=== PATIENT | male | born 1965 | race Caucasian/White ===

== ENCOUNTER 2016-10-24 22:25 | Inpatient (IN) | payer OTHER ==
[~2016-10-24] VITALS: Ht 177.8 cm; Wt 62.5 kg
[2016-10-24 22:30] VITALS: Ht 177.8 cm; Wt 62.5 kg
[2016-10-25] VITALS (16 sets, daily range): BP systolic 121–165; BP diastolic 79–108; PULSE 73–93; RESP 11–25; TEMP 97.3
--- NOTE | 2016-10-25 00:33 | ERD ---
ER Documentation Chief Complaint Date/Time DATE: 10/25/16 TIME: 00:30 Chief Complaint bib ra881 for chills,weakness,abd pain n/v/d, sore throat,cough,runny nose HPI This 50-year-old male patient BIBA for chills n/v/ fatighue, ABD pain and diarrhea . pt is a DM on metformin denies that medication causes GI distress. Patient reports difficulty tolerating fluids and solid food. pt is sleeping during most of exam, ROS All systems reviewed and are negative except as per history of present illness. Medications Home Meds Reported Medications Lisinopril* (Lisinopril*) Unknown Strength Tablet, 0 PO DAILY, #30 TAB 10/25/16 Metformin* (Glucophage*) 500 Mg Tab, 500 MG PO WITH BREAKFAST DINNE, #30 TAB 10/25/16 Allergies Allergies: Coded Allergies: ondansetron (Unverified Adverse Reaction, Unknown, VOMITTING, 10/25/16) Uncoded Allergies: ZOFRAN (Allergy, Unknown, VOMITING, 01/09/16) PMhx/Soc Hx Cardiac Disorders: Yes (htn) Hx Miscellaneous Medical Probl: Yes (pancreatitis, dm) Hx Alcohol Use: Yes Hx Substance Use: Yes (marijuana) Hx Tobacco Use: No Smoking Status: Never smoker Physical Exam Vitals Vital Signs Date Time Temp Pulse Resp B/P Pulse Ox O2 Delivery O2 Flow Rate FiO2 10/25/16 06:00 99.5 81 18 171/81 100 Room Air 10/25/16 05:41 99.5 89 18 182/91 100 Room Air 10/24/16 22:30 99.5 104 18 181/97 100 Stable, triage notes reviewed, blood pressure 181/97 Physical Exam Const: Cachectic, falling asleep during exam, waking moaning in pain holding his abdomen, obvious discomfort no acute distress Head: Eyes: ENT: Normal External Ears, Nose and Mouth. Neck: Resp: Clear to auscultation bilaterally Cardio: Regular rate and rhythm, no murmurs Abd: Soft, generalized tenderness, no distention, no Salas's point tenderness. Skin: No petechiae or rashes Back: Ext: Neur: Awake and alert Psych: Normal Mood and Affect Result Diagram: 10/25/16 0255 10/25/16 1545 Results 24 hrs Laboratory Tests Test 10/25/16 02:55 10/25/16 04:16 10/25/16 05:31 10/25/16 06:36 White Blood Count 6.410^3/ul Red Blood Count 4.4610^6/ul Hemoglobin 13.5g/dl Hematocrit 39.7% Mean Corpuscular Volume 89.0fl Mean Corpuscular Hemoglobin 30.3pg Mean Corpuscular Hemoglobin Concent 34.0g/dl Red Cell Distribution Width 11.8% Platelet Count 07801^3/UL Mean Platelet Volume 10.2fl Neutrophils % 91.7% Lymphocytes % 6.1% Monocytes % 1.7% Eosinophils % 0.0% Basophils % 0.2% Nucleated Red Blood Cells % 0.0/100WBC Neutrophils # (Manual) 610^3/ul Lymphocytes # 0.410^3/ul Monocytes # 0.110^3/ul Eosinophils # 0.010^3/ul Basophils # 0.010^3/ul Nucleated Red Blood Cells # 0.010^3/ul Sodium Level 138mmol/L Potassium Level 4.0mmol/L Chloride Level 96mmol/L Carbon Dioxide Level 14mmol/L Anion Gap 32 Blood Urea Nitrogen 14mg/dl Creatinine 1.28mg/dl Glucose Level 255mg/dl Calcium Level 10.3mg/dl Phosphorus Level 3.9mg/dl Magnesium Level 1.7mg/dl Total Bilirubin 0.9mg/dl Direct Bilirubin 0.00mg/dl Indirect Bilirubin 0.9mg/dl Aspartate Amino Transf (AST/SGOT) 20IU/L Alanine Aminotransferase (ALT/SGPT) 31IU/L Alkaline Phosphatase 109IU/L Total Protein 8.9g/dl Albumin 5.3g/dl Globulin 3.60g/dl Albumin/Globulin Ratio 1.47 Lipase < 10U/L Blood Gas Specimen Source Blood venous Arterial Blood Date Drawn 10/25/2016 4:40:46 AM Arterial Blood Gas Puncture Site VENOUS LINE Jhonatan Test N/A Venous Blood pH 7.448 Venous Blood pCO2 (Temp Corrected) 21.0mmHG Venous Blood pO2 (Temp Corrected) 53.2mmHG Venous Blood HCO3 14.2mmol/L Venous Blood Oxygen Saturation 89.4mmHG Venous Blood Base Excess -7.5mmol/L Venous Blood Total Hemoglobin 13.7g/dl Venous Blood Oxyhemoglobin 88.6% Venous Blood Methemoglobin 0.2% Carboxyhemoglobin 0.7% Blood Gas Temperature 37.0C Blood Gas Modality ROOM AIR FiO2 21.0% Blood Gas Notified Whom MM Blood Gas Notified Time 10/25/2016 4:47:21 AM Bedside Glucose 322mg/dL 247mg/dL Current Medications Medications (Trade) Dose Ordered Sig/Georgie Route PRN Reason Start Time Stop Time Status Last Admin Dose Admin Acetaminophen (Tylenol Tab) 650 mg ONCE STAT PO 10/25/16 00:34 10/25/16 00:36 DC 10/25/16 00:57 Ondansetron HCl (Zofran Odt) 4 mg ONCE STAT ODT 10/25/16 00:34 10/25/16 00:36 DC 10/25/16 00:57 Ondansetron HCl (Zofran Inj) 4 mg ONCE ONCE IV 10/25/16 02:12 10/25/16 02:13 DC 10/25/16 02:56 Ketorolac Tromethamine 15 mg 15 mg ONCE ONCE IV 10/25/16 02:12 10/25/16 02:13 DC 10/25/16 02:56 Sodium Chloride 1,000 ml @ 1,000 mls/hr Q1H STAT IV 10/25/16 04:16 10/25/16 05:15 DC 10/25/16 05:00 Lactated Ringer's 1,000 ml @ 1,000 mls/hr Q1H STAT IV 10/25/16 04:16 10/25/16 05:15 DC 10/25/16 05:00 Insulin Human Regular 100 unit/ Sodium Chloride 100 ml @ 0 mls/hr TITRATE STAT IV 10/25/16 04:16 10/25/16 04:19 DC 10/25/16 05:38 Potassium Chloride/Dextrose/ Sod Cl (D5-1/2ns + KCl 20 Meq) 1,000 ml @ 250 mls/hr Q4H ONCE IV 10/25/16 04:55 10/25/16 20:41 DC Hydromorphone HCl (Dilaudid) 0.5 mg ONCE STAT IV 10/25/16 04:55 10/25/16 04:57 DC 10/25/16 05:10 Ondansetron HCl 4 mg 4 mg ONCE STAT IV 10/25/16 04:55 10/25/16 04:57 DC Sodium Chloride 1,000 ml @ 150 mls/hr Q6H40M IV 10/25/16 06:37 10/25/16 20:41 DC 10/25/16 06:37 Dextrose/Sodium Chloride (D5-1/2ns) 1,000 ml @ 150 mls/hr Q6H40M IV 10/25/16 06:37 10/25/16 19:03 DC 10/25/16 08:58 Interpretation text CBC shows no evidence of hemorrhage or infection Chemistry shows no evidence of significant electrolyte abnormalities or renal insufficiency Liver function tests shows no evidence of acute biliary or hepatic dysfunction Procedures/MDM This 50-year-old male patient brought into emergency department by ambulance for chills, nausea, vomiting, fatigue, diarrhea, abdominal pain. Patient is a diabetic on metformin is cachectic and sleeping intermittently . Patient denies any IV drug use, denies any pre-existing condition. Tums have been present for the last 2 days. I have low suspicion for appendicitis, bowel obstruction, or cholecystitis. Patient emergency room care includes Zofran and Motrin which he vomited. Treatment plan reassessed patient will receive IV normal saline, IV Zofran, IV Toradol, routine laboratory testing CBC, CMP, lipase, to rule out any acute infection or electrolyte imbalance, any biliary dysfunction or diabetic ketoacidosis. Patient is dehydrated with poor veins not tolerating ordered interventions. Laboratory called to obtain serology, medication given intramuscularly. Patient is unable to provide urine at this time regardless of going to the bathroom numerous times. I have ordered a urinalysis and a urine drug screen. In my opinion patient is on intravenous drugs or withdrawing from intravenous drugs. Patient is nonconfrontational reports feeling better after examination. Plan to discharge patient with viral gastroenteritis with Zofran 4 mg 1 tab p.o. every 8 hours as needed. Increase fluids, increase rest. Once laboratory testing becomes available and normal. Report is given to Yamileth Lennon, plan discussed. Patient will be discharged as planned unless abnormal laboratory values suggest other emergent condition requiring further evaluation or hospitalization ANSHUQUINTEN BOLTON Oct 25, 2016 00:27
[2016-10-25] MEDS ORDERED: ONDANSETRON (ODT) 4 MG TAB ODT STA (00:34)
[2016-10-25] MEDS ORDERED: ACETAMINOPHEN 325 MG TAB PO STA (00:34)
[2016-10-25] MEDS ORDERED: ONDANSETRON 4 MG INJ IV ONE (02:12)
[2016-10-25] MEDS ORDERED: KETOROLAC 15 MG INJ IV ONE (02:12)
[2016-10-25 04:01] LABS: ALANINE AMINOTRANSFERASE 31 IU/L (13-69); ALBUMIN 5.3 g/dl (3.3-4.9); ALBUMIN/GLOBULIN RATIO 1.47; ALKALINE PHOSPHATASE 109 IU/L (42-121); ANION GAP 32 (8-16); ASPARTATE AMINO TRANSFERASE 20 IU/L (15-46); BILIRUBIN,INDIRECT 0.9 mg/dl (0-1.1); BILIRUBIN,TOTAL 0.9 mg/dl (0.2-1.3); BLOOD UREA NITROGEN 14 mg/dl (7-20); CALCIUM 10.3 mg/dl (8.4-10.2); CARBON DIOXIDE 14 mmol/L (21-31); CHLORIDE 96 mmol/L (97-110); CREATININE 1.28 mg/dl (0.61-1.24); GLUCOSE 255 mg/dl (70-220); SODIUM 138 mmol/L (135-144); TOTAL PROTEIN 8.9 g/dl (6.1-8.1)
[2016-10-25] MEDS ORDERED: SOD CHLORIDE 0.9% 1,000 ML IV STA (04:16)
[2016-10-25] MEDS ORDERED: LACTATED RINGER'S 1,000 ML IV STA (04:16)
[2016-10-25] MEDS ORDERED: INSULIN HUMAN REGULAR 100 UNIT in SOD CHLORIDE 0.9% 99 ML IV STA (04:16)
[2016-10-25 04:19] LABS: ABNORMAL IP MESSAGE 1; BASOPHILS % 0.2 % (0.0-2.0); HEMATOCRIT 39.7 % (42.0-52.0); HEMOGLOBIN 13.5 g/dl (14.0-18.0); LYMPHOCYTES # 0.4 10^3/ul (0.8-2.9); LYMPHOCYTES % 6.1 % (15.0-51.0); MEAN CORPUSCULAR HEMOGLOBIN 30.3 pg (29.0-33.0); MEAN PLATELET VOLUME 10.2 fl (7.4-10.4); MONOCYTE # 0.1 10^3/ul (0.3-0.9); MONOCYTES % 1.7 % (0.0-11.0); NEUTROPHILS % 91.7 % (39.0-77.0); PLATELET COUNT 253 10^3/UL (140-415); POSITIVE DIFF @See below; RED BLOOD COUNT 4.46 10^6/ul (4.70-6.10); RED CELL DISTRIBUTION WIDTH 11.8 % (11.5-14.5); WHITE BLOOD COUNT 6.4 10^3/ul (4.8-10.8)
[2016-10-25 04:49] LABS: MODE ROOM AIR; MetHgb Venous 0.2 %; Sample Type Blood venous; Venous COHb 0.7 %; Venous Fraction OxyHgb 88.6 %; Venous Total Hemglobin 13.7 g/dl
[2016-10-25] MEDS ORDERED: HYDROmorphONE 1 MG/ML SYG IV STA (04:55)
[2016-10-25] MEDS ORDERED: ONDANSETRON 4 MG INJ IV STA (04:55)
[2016-10-25] MEDS ORDERED: D5W-0.45 NACL + KCL 20 MEQ 1,000 ML IV ONE (04:55)
[2016-10-25] MEDS ORDERED: METF500T4 PO (05:16)
[2016-10-25] MEDS ORDERED: LISI10TA2 PO (05:16)
--- NOTE | 2016-10-25 05:44 | QN ---
Documentation Comment I have seen and evaluated the patient along with the PA and/or [employer] provider. I agree with the evaluation and plan of care. Please see their documentation for full ER course and evaluation. In short: This is a 50-year-old male with a history of diabetes who presents with nausea vomiting and diarrhea. The patient has poor p.o. intake. The patient was evaluated and treated by the PA and [employer] team and concern for DKA arose. On my evaluation the patient is still describing mild abdominal cramping with nausea. On exam: General: Thin, dehydrated Head: Normocephalic, atraumatic. Eyes: Pupils equally reactive, EOM intact ENT: Very dry mucous membranes Neck: Supple, no lymphadenopathy Respiratory: Lungs clear bilaterally, no distress Cardiovascular: RRR, no murmurs, rubs, or gallops Abdominal: Soft, mild diffuse tenderness without localizing symptoms, no peritonitis : Deferred MSK: No edema, no unilateral swelling, 5/5 strength Neurologic: Alert and oriented, moving all extremities, normal speech, no focal weakness, no cerebellar signs Skin: No rash Psych: Normal mood Assessment and plan: The patient has laboratory values that are concerning for diabetic ketoacidosis. He has not been able to produce urine. The patient has an anion gap of 28. The patient's pH on venous blood gas is normal suggesting possible early disease process versus compensated process. I do not suspect acute intra- abdominal process and do not feel the patient warrants CT imaging of the abdomen and pelvis at this time. The patient has been a diabetic ketoacidosis before and states this feels similar. The patient was a very difficult IV access, my nursing team was eventually able to obtain IV access and the patient was written for a liter of saline, liter lactated Ringer's and dextrose infusion solution as needed. He was initiated on an insulin drip. The patient will need placement in the intensive care unit, magnesium and phosphorus pending. Replete electrolytes as needed. DKA protocol initiated in the emergency room. Critical Care Note: Total time: 48 minutes Indication/Organ System Threat: Diabetic ketoacidosis I spent the above amount of critical care time with the patient, not including billable procedures. This included chart review, consultations, repeat bedside evaluations, and titration of appropriate medications to prevent cardiopulmonary or respiratory collapse. Accepting care team and consultations: I discussed the current laboratory data, diagnostic imaging and emergency care provided. Admitting team: Dr. Espinoza Admitting team indication: Insurance directed LEN WHITMAN MD Oct 25, 2016 05:44
[2016-10-25] MEDS: SOD CHLORIDE 0.9% 1,000 ML IV SCH ×3 (06:37→19:55)
[2016-10-25 06:59] LABS: MAGNESIUM 1.7 mg/dl (1.7-2.5); PHOSPHORUS 3.9 mg/dl (2.5-4.9)
[2016-10-25] MEDS ORDERED: DEXTROSE 50% 50 ML SYRINGE IV PRN ×3 (07:00→21:30)
[2016-10-25] MEDS ORDERED: INSULIN HUMAN REGULAR IV SCH ×3 (07:00)
[2016-10-25] MEDS ORDERED: SOD CHLORIDE IV SCH ×3 (07:00)
[2016-10-25] MEDS: ACCU-CHEK XX SCH ×14 (07:00→19:58)
[2016-10-25] MEDS ORDERED: METOCLOPRAMIDE 10 MG INJ IV PRN (07:00)
[2016-10-25] MEDS ORDERED: [UNRECOGNIZED DRUG - OTHER] IV SCH ×3 (07:00)
[2016-10-25] MEDS ORDERED: LORAZEPAM 2 MG INJ IV PRN (07:00)
[2016-10-25] MEDS ORDERED: Regular insulin 100 Units/100 ml NS IV SCH ×2 (07:30)
[2016-10-25] MEDS ORDERED: ACCU-CHEK XX SCH (07:30)
[2016-10-25] MEDS ORDERED: DIPHENHYDRAMINE 25 MG CAP PO ONE (07:30)
--- NOTE | 2016-10-25 08:56 | HP ---
DATE OF ADMISSION: 10/24/2016 CHIEF COMPLAINT: Flulike symptoms for about 2 days. HISTORY OF PRESENT ILLNESS: Mr. Campos is a 50-year-old male with a past medical history of hypertension, diabetes, who was brought in by ambulance because of chills, nausea, vomiting, abdominal pain for the last 2 days. Patient has also had some diarrhea. Patient had attributed his symptoms to medication effect , but preliminary emergency room evaluation shows patient is in acute DKA. He is being admitted to the intensive care unit as per protocol for DKA management. PAST MEDICAL HISTORY: 1. Hypertension. 2. Diabetes mellitus. 3. History of pancreatitis. PAST SURGICAL HISTORY: None. ALLERGIES: PATIENT IS ALLERGIC TO: ZOFRAN. ONDANSETRON. SOCIAL HISTORY: Marijuana and alcohol user, but denies tobacco use. REVIEW OF SYSTEMS: Twelve point review of systems was noncontributory except what was found in HPI. MEDICATIONS: These were reviewed and reconciled. Please refer the patient's chart for details. Patient takes: 1. Metformin. 2. Lisinopril of unknown dose. PHYSICAL EXAMINATION: VITAL SIGNS: Temperature 99.5, pulse 81, respirations 18, blood pressure 171/81, saturation 100 percent on room air. GENERAL APPEARANCE: Patient is a chronically ill looking, lethargic, but alert and in no distress. HEENT: Head normocephalic. Pupils are equal and reactive. Mucous membranes were dry. Posterior pharynx also looks quite dry, but not inflamed. LUNGS: Clear to auscultation. CARDIAC: S1, S2. No murmurs. ABDOMEN: Patient complains of soreness but it is not really tender with marked bowel sounds, nondistended. EXTREMITIES: Lower extremities negative for edema. SKIN: Devoid of rashes. No jaundice. DATA: The patient has an anion gap of 32, with CO2 level of 14, creatinine of 1.28, point of care glucose is 322, calcium 10.3. His lipid profile is grossly normal, but he does have hyperproteinemia and hyperalbuminemia. His lipase level is normal. His CBC does show predominance of the neutrophils but no white count and his hemoglobin is low with normocytic indices. IMPRESSION: A 50-year-old male who presents to us with flulike symptoms manifested by: 1. Metabolic acidosis secondary to diabetic ketoacidosis. 2. Poorly controlled diabetes mellitus. 3. Hypertension with suboptimal control. 4. Alcohol and marijuana user. 5. Acute renal insufficiency secondary to dehydration. PLAN: Admit to intensive care and provide insulin via DKA protocol. We will hold his DASH inhibitor for now and resume when his renal function improves. We will use p.r.n. antihypertensives, keep patient n.p.o., and essentially address his dehydration, and treat with insulin drip. This plan of care has been discussed with the patient. Patient is going to require close critical care monitoring and management. Dictated By: Oscar Espinoza MD /fabricio/jose /Document#: [id number] ANDRE
[2016-10-25] MEDS: DEXTROSE 5%-0.45% NACL 1,000 ML IV SCH ×2 (08:58→13:17)
[2016-10-25 08:59] LABS: CALCIUM 9.3 mg/dl (8.4-10.2); CREATININE 1.27 mg/dl (0.61-1.24); POTASSIUM 3.6 mmol/L (3.5-5.1)
[2016-10-25] MEDS ORDERED: FAMOTIDINE 20 MG INJ IV SCH (09:00)
[2016-10-25] MEDS: DOCUSATE SODIUM 100 MG CAP PO SCH ×2 (09:22→19:58)
[2016-10-25] MEDS: DEXTROSE 50% 50 ML SYRINGE IV PRN ×2 (10:52→17:11)
[2016-10-25] MEDS: HYDROmorphONE 1 MG/ML SYG IV PRN ×3 (11:24→19:12)
[2016-10-25] MEDS ORDERED: DEXTROSE 5% 1,000 ML IV SCH (13:00)
[2016-10-25] MEDS: DIPHENHYDRAMINE 25 MG CAP PO PRN ×2 (14:37→21:13)
[2016-10-25 16:08] LABS: CALCIUM 9.2 mg/dl (8.4-10.2); CREATININE 1.2 mg/dl (0.61-1.24); POTASSIUM 3.5 mmol/L (3.5-5.1)
[2016-10-25] MEDS ORDERED: INSULIN GLARGINE [LANtus] 3 ML PEN SC ONE (17:00)
--- NOTE | 2016-10-25 19:00 | PN ---
Date/Time of Note Date/Time of Note DATE: 10/25/16 TIME: 18:59 Assessment/Plan VTE Prophylaxis VTE Prophylaxis Intervention: SCD's Lines/Catheters IV Catheter Type (from Nrs): Peripheral IV Urinary Cath still in place: No Assessment/Plan Assessment/Plan 50 yo M with DM admitted for DKA PLAN transition from insulin drip to SubQ a1c DM CDE consult for weight loss, check CXR and PSA to r/o occult malignancy if PO tolerance remains an issue, consider NM gastric emptying study Critical care time: 30 minutes Subjective 24 Hr Interval Summary Free Text/Dictation Pt states he has been under a lot of stress from school lately and has lost 30 pounds from this and poor appetite Exam/Review of Systems Vital Signs Vitals Vital Signs Date Time Temp Pulse Resp B/P Pulse Ox O2 Delivery O2 Flow Rate FiO2 10/25/16 18:00 77 17 157/107 95 Room Air 10/25/16 16:30 97.9 Exam nad MMM no mrg lungs clear abd soft no rashes Results Result Diagram: 10/25/16 0255 10/25/16 1545 Results 24 hrs Laboratory Tests Test 10/25/16 02:55 10/25/16 04:16 10/25/16 05:31 10/25/16 06:36 White Blood Count 6.4 Red Blood Count 4.46 L Hemoglobin 13.5 L Hematocrit 39.7 L Mean Corpuscular Volume 89.0 Mean Corpuscular Hemoglobin 30.3 Mean Corpuscular Hemoglobin Concent 34.0 Red Cell Distribution Width 11.8 Platelet Count 253 Mean Platelet Volume 10.2 Neutrophils % 91.7 H Lymphocytes % 6.1 L Monocytes % 1.7 Eosinophils % 0.0 Basophils % 0.2 Nucleated Red Blood Cells % 0.0 Neutrophils # (Manual) 6 Lymphocytes # 0.4 L Monocytes # 0.1 L Eosinophils # 0.0 Basophils # 0.0 Nucleated Red Blood Cells # 0.0 Sodium Level 138 Potassium Level 4.0 Chloride Level 96 L Carbon Dioxide Level 14 L Anion Gap 32 H Blood Urea Nitrogen 14 Creatinine 1.28 H Glucose Level 255 H Calcium Level 10.3 H Phosphorus Level 3.9 Magnesium Level 1.7 Total Bilirubin 0.9 Direct Bilirubin 0.00 Indirect Bilirubin 0.9 Aspartate Amino Transf (AST/SGOT) 20 Alanine Aminotransferase (ALT/SGPT) 31 Alkaline Phosphatase 109 Total Protein 8.9 H Albumin 5.3 H Globulin 3.60 H Albumin/Globulin Ratio 1.47 Lipase < 10 L Blood Gas Specimen Source Blood venous Arterial Blood Date Drawn 10/25/2016 4:40:46 AM Arterial Blood Gas Puncture Site VENOUS LINE Jhonatan Test N/A Venous Blood pH 7.448 H Venous Blood pCO2 (Temp Corrected) 21.0 L Venous Blood pO2 (Temp Corrected) 53.2 H Venous Blood HCO3 14.2 L Venous Blood Oxygen Saturation 89.4 H Venous Blood Base Excess -7.5 L Venous Blood Total Hemoglobin 13.7 Venous Blood Oxyhemoglobin 88.6 Venous Blood Methemoglobin 0.2 Carboxyhemoglobin 0.7 Blood Gas Temperature 37.0 Blood Gas Modality ROOM AIR FiO2 21.0 Blood Gas Notified Whom MM Blood Gas Notified Time 10/25/2016 4:47:21 AM Bedside Glucose 322 H 247 H Test 10/25/16 07:52 10/25/16 08:15 10/25/16 10:43 10/25/16 11:15 Bedside Glucose 170 68 L 140 Sodium Level 138 Potassium Level 3.6 Chloride Level 100 Carbon Dioxide Level 21 Anion Gap 21 #H Blood Urea Nitrogen 18 Creatinine 1.27 H Glucose Level 140 # Hemoglobin A1c 9.7 H Calcium Level 9.3 Test 10/25/16 12:38 10/25/16 13:39 10/25/16 14:40 10/25/16 15:44 Bedside Glucose 131 128 113 111 Test 10/25/16 15:45 10/25/16 17:09 10/25/16 17:33 10/25/16 18:02 Sodium Level 136 Potassium Level 3.5 Chloride Level 99 Carbon Dioxide Level 24 Anion Gap 17 H Blood Urea Nitrogen 17 Creatinine 1.20 Glucose Level 91 # Calcium Level 9.2 Bedside Glucose 66 L 134 134 Medications Medications Current Medications Dextrose (D50w Syringe) 50 ml Q15M PRN IV For BS 50 or less; Start 10/25/16 at 07:00 Dextrose (D50w Syringe) 25 ml Q15M PRN IV BS between 50-70 Last administered on 10/25/16 17:11; Admin Dose 25 ML; Start 10/25/16 at 07:00 Diagnostic Test (Pha) 1 ea 1 ea Q1H XX Last administered on 10/25/16 18:07; Admin Dose 1 EA; Start 10/25/16 at 07:00 Sodium Chloride 1,000 ml @ 150 mls/hr Q6H40M IV Last administered on 06:37; Admin Dose 150 MLS/HR; Start 10/25/16 at 06:37 Dextrose/Sodium Chloride (D5-1/2ns) 1,000 ml @ 150 mls/hr Q6H40M IV Last administered on 10/25/16 08:58; Admin Dose 150 MLS/HR; Start 10/25/16 at 06:37 Docusate Sodium (Colace) 200 mg BID PO Last administered on 10/25/16 09:22; Admin Dose 200 MG; Start 10/25/16 at 09:00 Metoclopramide HCl (Reglan) 10 mg Q6H PRN IV nausea and vomiting; Start at 07:00 Hydromorphone HCl 1 mg 1 mg Q4H PRN IV PAIN Last administered on 10/25/16 15: 12; Admin Dose 1 MG; Start 10/25/16 at 11:11 Dextrose (D5W) 1,000 ml @ 75 mls/hr [id number] IV Last administered on 10/25/16 13:00; Admin Dose 75 MLS/HR; Start 10/25/16 at 13:00 Diphenhydramine HCl (Benadryl) 25 mg Q6H PRN PO ITCHING Last administered on 14:37; Admin Dose 25 MG; Start 10/25/16 at 14:30 ASIA HUERTA MD Oct 25, 2016 19:00
[2016-10-25] MEDS ORDERED: ZOLPIDEM 5 MG TAB PO PRN (21:00)
[2016-10-25] MEDS: INSULIN ASPART [NOVOLOG] 3 ML PEN SC SCH (21:00)
[2016-10-25] MEDS ORDERED: GLUCOSE GEL 15 GRAM TUBE PO PRN ×2 (21:30)
[2016-10-25] MEDS ORDERED: GLUCAGON 1 MG INJ IM PRN (21:30)
[2016-10-25] MEDS ORDERED: GLUCOSE GEL 15 GRAM TUBE BUCCAL PRN (21:30)
--- NOTE | 2016-10-25 21:50 | RADRPT ---
PROCEDURE: XR Chest. CLINICAL INDICATION: Shortness of breath. TECHNIQUE: Single frontal view. COMPARISON: None. FINDINGS: The lungs are clear. The heart size is normal. There is no pleural effusion. There is no pneumothorax. IMPRESSION: 1. Normal chest radiograph. RPTAT: QQ .Jovan Khoury MD, Date Time Electronically viewed and signed by .Jovan Khoury MD, on 10/25/2016 21:50 .R/
[2016-10-26] VITALS (14 sets, daily range): BP systolic 128–201; BP diastolic 84–146; PULSE 74–101; RESP 11–24
[2016-10-26] MEDS: HYDROmorphONE 1 MG/ML SYG IV PRN ×4 (00:08→12:28)
[2016-10-26] MEDS ORDERED: ACCU-CHEK XX SCH ×2 (02:00)
[2016-10-26] MEDS ORDERED: DIPHENHYDRAMINE 50 MG INJ IV ONE (02:30)
[2016-10-26] MEDS ORDERED: LORAZEPAM 2 MG INJ IV ONE (04:00)
[2016-10-26 06:50] LABS: BASOPHILS % 0.1 % (0.0-2.0); EOSINOPHILS % 0.5 % (0.0-7.0); HEMATOCRIT 33.8 % (42.0-52.0); LYMPHOCYTES # 1.6 10^3/ul (0.8-2.9); LYMPHOCYTES % 20.3 % (15.0-51.0); MEAN CORPUSCULAR HGB CONC 32.5 g/dl (32.0-37.0); MEAN CORPUSCULAR VOLUME 89.2 fl (82.0-101.0); MEAN PLATELET VOLUME 8.9 fl (7.4-10.4); MONOCYTE # 0.8 10^3/ul (0.3-0.9); MONOCYTES % 10.1 % (0.0-11.0); NEUTROPHILS % 68.5 % (39.0-77.0); PLATELET COUNT 224 10^3/UL (140-415); RED BLOOD COUNT 3.79 10^6/ul (4.70-6.10); RED CELL DISTRIBUTION WIDTH 12.2 % (11.5-14.5); WHITE BLOOD COUNT 7.8 10^3/ul (4.8-10.8)
[2016-10-26 06:59] LABS: ADD UMIC NO; UR ASCORBIC ACID NEGATIVE (NEGATIVE); UR BILIRUBIN (Dip) NEGATIVE (NEGATIVE); UR BLOOD (Dip) NEGATIVE (NEGATIVE); UR CLARITY CLEAR (CLEAR); UR COLOR STRAW (YELLOW); UR GLUCOSE (Dip) 1+ mg/dL (NEGATIVE); UR KETONES (Dip) NEGATIVE (NEGATIVE); UR LEUKOCYTE ESTERASE (Dip) NEGATIVE Leu/ul (NEGATIVE); UR NITRITE (Dip) NEGATIVE (NEGATIVE); UR SPECIFIC GRAVITY (Dip) 1.006 (1.003-1.030); UR TOTAL PROTEIN (Dip) NEGATIVE (NEGATIVE); UR UROBILINOGEN (Dip) NEGATIVE (NEGATIVE)
[2016-10-26 07:33] LABS: OPIATES Positive (NEGATIVE)
[2016-10-26] MEDS: INSULIN ASPART [NOVOLOG] 3 ML PEN SC SCH ×2 (07:35→12:39)
[2016-10-26 07:37] LABS: CALCIUM 9.5 mg/dl (8.4-10.2); CHOL/HDL RATIO 1.7 RATIO; CREATININE 1.25 mg/dl (0.61-1.24); MAGNESIUM 1.7 mg/dl (1.7-2.5); POTASSIUM 3.3 mmol/L (3.5-5.1)
[2016-10-26 07:47] LABS: BARBITURATES Negative (NEGATIVE); BENZODIAZEPINES Negative (NEGATIVE); CANNABINOIDS Positive (NEGATIVE); COCAINE Negative (NEGATIVE)
[2016-10-26] MEDS ORDERED: INSULIN GLARGINE [LANtus] 3 ML PEN SC SCH (08:00)
[2016-10-26] MEDS: DOCUSATE SODIUM 100 MG CAP PO SCH (08:18)
[2016-10-26] MEDS ORDERED: POTASSIUM CHLORIDE (SR) 20 MEQ TAB PO STA (09:25)
[2016-10-26] MEDS: DIPHENHYDRAMINE 25 MG CAP PO PRN (09:30)
--- NOTE | 2016-10-26 13:39 | DS ---
Date/Time of Note Date/Time of Note DATE: 10/26/16 TIME: 13:38 Discharge Summary Admission/Discharge Info Admit Date/Time Oct 25, 2016 at 06:54 Discharge Date/Time Discharge Diagnosis diabetic ketoacidosis Patient Condition: Good Procedures CXR 8.: no infiltrate PSA nl a1c 9.7 Hx of Present Illness Mr. Campos is a 50-year-old male with a past medical history of hypertension, diabetes, who was brought in by ambulance because of chills, nausea, vomiting, abdominal pain for the last 2 days. Patient has also had some diarrhea, and also reports some . Patient had attributed his symptoms to medication effect, but preliminary emergency room evaluation shows patient is in acute DKA. He is being admitted to the intensive care unit as per protocol for DKA management. Hospital Course Pt initially on insulin drip, anion gap improved greatly by late afternoon. Drip stopped and patient switched to SubQ insulin. By the next morning, AG had totally closed and BGs consistently <200. Pt seen by DM educator and got DM teaching prior to discharge. For patient's c/o weight loss, PSA and CXR were checked-->both unremarkable. Hgb slightly low, 11-13. Pt should follow up with PCP for further eval. Home Meds Active Scripts [basaglar] No Conflict Check, 10 UNIT SC DAILY Prov:ASIA HUERTA MD 10/26/16 Reported Medications Lisinopril* (Lisinopril*) Unknown Strength Tablet, 0 PO DAILY, #30 TAB 10/25/16 Metformin* (Glucophage*) 500 Mg Tab, 500 MG PO WITH BREAKFAST DINNE, #30 TAB 10/25/16 Follow-up Plan PCP within 14 days Primary Care Provider Care Physician No Primary Time spent on discharge: > 30 minutes Pending Labs Laboratory Tests Test 10/25/16 13:39 10/25/16 14:40 10/25/16 15:44 10/25/16 15:45 Bedside Glucose 128mg/dL (70-220) 113mg/dL (70-220) 111mg/dL (70-220) Sodium Level 136mmol/L (135-144) Potassium Level 3.5mmol/L (3.5-5.1) Chloride Level 99mmol/L (97-110) Carbon Dioxide Level 24mmol/L (21-31) Anion Gap 17 (8-16) Blood Urea Nitrogen 17mg/dl (7-20) Creatinine 1.20mg/dl (0.61-1.24) Glucose Level 91mg/dl (70-220) Calcium Level 9.2mg/dl (8.4-10.2) Test 10/25/16 17:09 10/25/16 17:33 10/25/16 18:02 10/25/16 19:06 Bedside Glucose 66mg/dL (70-220) 134mg/dL (70-220) 134mg/dL (70-220) 129mg/dL (70-220) Test 10/25/16 21:50 10/26/16 01:29 10/26/16 05:00 10/26/16 06:10 Bedside Glucose 114mg/dL (70-220) 88mg/dL (70-220) Urine Color STRAW (YELLOW) Urine Clarity CLEAR (CLEAR) Urine pH 6.0 (5.0-9.0) Urine Specific Clutier 1.006 (1.003-1.030) Urine Ketones NEGATIVEmg/dL (NEGATIVE) Urine Nitrite NEGATIVEmg/dL (NEGATIVE) Urine Bilirubin NEGATIVEmg/dL (NEGATIVE) Urine Urobilinogen NEGATIVEmg/dL (NEGATIVE) Urine Leukocyte Esterase NEGATIVELeu/ul (NEGATIVE) Urine Hemoglobin NEGATIVEmg/dL (NEGATIVE) Urine Glucose 1+mg/dL (NEGATIVE) Urine Total Protein NEGATIVEmg/dl (NEGATIVE) Urine Opiates Screen Positive (NEGATIVE) Urine Barbiturates Negative (NEGATIVE) Urine Amphetamines Screen Negative (NEGATIVE) Urine Benzodiazepines Screen Negative (NEGATIVE) Urine Cocaine Screen Negative (NEGATIVE) Urine Cannabinoids Positive (NEGATIVE) White Blood Count 7.810^3/ul (4.8-10.8) Red Blood Count 3.7910^6/ul (4.70-6.10) Hemoglobin 11.0g/dl (14.0-18.0) Hematocrit 33.8% (42.0-52.0) Mean Corpuscular Volume 89.2fl (82.0-101.0) Mean Corpuscular Hemoglobin 29.0pg (29.0-33.0) Mean Corpuscular Hemoglobin Concent 32.5g/dl (32.0-37.0) Red Cell Distribution Width 12.2% (11.5-14.5) Platelet Count 49852^3/UL (140-415) Mean Platelet Volume 8.9fl (7.4-10.4) Neutrophils % 68.5% (39.0-77.0) Lymphocytes % 20.3% (15.0-51.0) Monocytes % 10.1% (0.0-11.0) Eosinophils % 0.5% (0.0-7.0) Basophils % 0.1% (0.0-2.0) Nucleated Red Blood Cells % 0.0/100WBC (0.0-0.0) Neutrophils # (Manual) 5.410^3/ul (1.7-7.5) Lymphocytes # 1.610^3/ul (0.8-2.9) Monocytes # 0.810^3/ul (0.3-0.9) Eosinophils # 0.010^3/ul (0.0-0.5) Basophils # 0.010^3/ul (0.0-0.1) Nucleated Red Blood Cells # 0.010^3/ul (0.0-0.0) Sodium Level 143mmol/L (135-144) Potassium Level 3.3mmol/L (3.5-5.1) Chloride Level 101mmol/L (97-110) Carbon Dioxide Level 27mmol/L (21-31) Anion Gap 18 (8-16) Blood Urea Nitrogen 13mg/dl (7-20) Creatinine 1.25mg/dl (0.61-1.24) Glucose Level 62mg/dl (70-220) Calcium Level 9.5mg/dl (8.4-10.2) Magnesium Level 1.7mg/dl (1.7-2.5) Triglycerides Level 51mg/dl (0-149) Cholesterol Level 143mg/dl (100-200) LDL Cholesterol, Calculated 51mg/dl HDL Cholesterol 82mg/dl (27-67) Cholesterol/HDL Ratio 1.7RATIO Test 10/26/16 08:13 10/26/16 10:00 10/26/16 12:29 Bedside Glucose 79mg/dL (70-220) 109mg/dL (70-220) 184mg/dL (70-220) ASIA HUERTA MD Oct 26, 2016 13:39
[2016-10-26] MEDS ORDERED: basaglar SC (13:41)
[2016-10-26] MEDS ORDERED: INSU200I SQ (13:41)
--- NOTE | 2016-10-26 13:44 | PDOCDIS ---
Discharge Instructions DIAGNOSIS Discharge Diagnosis diabetic ketoacidosis CONDITION Patient Condition: Good FOLLOW UP/APPOINTMENTS Follow-up Plan take your insulin and follow up with your regular doctor within 2 weeks ASIA HUERTA MD Oct 26, 2016 13:44
[2016-10-27] MEDS ORDERED: INSULIN GLARGINE [LANtus] 3 ML PEN SC SCH (08:00)
== END 2016-10-26 15:45 | disposition home or self-care (01) | DRG 638 ==
LOC: FTE 22:25 → ICU 10-25 06:54 → MS2 10-26 12:59
PROVIDERS: ADMIT Family Medicine; ATTEND Family Medicine
DX: E13.10 Other specified diabetes mellitus with ketoacidosis without coma (principal); N17.9 Acute kidney failure, unspecified; E87.2 Acidosis; E86.0 Dehydration; I10 Essential (primary) hypertension; G47.9 Sleep disorder, unspecified; R68.83 Chills (without fever); R10.9 Unspecified abdominal pain; F12.90 Cannabis use, unspecified, uncomplicated; Z79.84 Long term (current) use of oral hypoglycemic drugs; Z87.19 Personal history of other diseases of the digestive system; Z88.8 Allergy status to other drugs, medicaments and biological substances; Z72.89 Other problems related to lifestyle
CPT/HCPCS: 36415; 71010; 80048; 80053; 80061; 80307; 81003; 82803; 82962; 83036; 83690; 83735; 84100; 84153; 84154; 85025; 87081; 87400; J1170; J1200; J1815; J1885; J2060; J2405; J3480; J7030; J7042; J7070; J7120

== ENCOUNTER 2017-02-21 16:12 | Emergency (ER) | END 2017-02-21 22:00 | disposition home or self-care (01) ==

== ENCOUNTER 2017-12-11 13:55 | Emergency (ER) | END 2017-12-11 17:51 | disposition home or self-care (01) ==

== ENCOUNTER 2018-09-17 12:12 | Emergency (ER) | payer SELFPAY ==
[~2018-09-17 12:12] MED LIST: BEN25 PO; CEPH-443 PO; HYDR-4011 PO; INSU200I SQ; LISI10TA2 PO; LISI30TA47 PO; METF-849 PO; basaglar SC
== END 2018-09-17 12:18 | disposition left against medical advice (07) ==
LOC: E/R 12:12
DX: Z53.21 Procedure and treatment not carried out due to patient leaving prior to being seen by health care provider (principal)